=== PATIENT | male | born 1970 | race Caucasian/White ===

== ENCOUNTER 2017-07-28 15:29 | Emergency (ER) | payer OTHER ==
[~2017-07-28] VITALS: Ht 172.7 cm; Wt 68.0 kg
[~2017-07-28 15:29] MED LIST: ALBU90OI INH; AMOX500 PO; AZIT250 PO; Amoxicillin500 MG PO; Augmentin 875-1 EACH PO; Bactrim Ds Tab1 EACH PO; Benadryl 50 mg50 MG PO; CEPH500 PO; CHLO25 PO; Crutch1 EACH MISC; DOXY100 PO; FAMO20 PO; HYDACE5 PO; HYDHCL25 PO; IBUP400 PO; IBUP800 PO; Keflex500 MG PO; LIND60T TOP; MUPI2TC TOP; MUPI2TO TOP; NAPR500 PO; Norco 5-325 Ta1 EACH PO; PENVK500 PO; PRED20 PO; Percocet 5-3251 EACH PO; Prednisone20 MG PO; RXHYDACE PO; RXPENVK250 PO; RXTRAM50 PO; TRAM50 PO; Zofran Odt4 MG PO
[2017-07-28] MEDS ORDERED: Permethrin60 GM TOP (15:50)
== END 2017-07-28 15:57 | disposition home or self-care (01) ==
LOC: ER 15:29
DX: B86 Scabies (principal); F17.210 Nicotine dependence, cigarettes, uncomplicated
CPT/HCPCS: 99282

== ENCOUNTER 2018-10-31 02:36 | Emergency (ER) | payer OTHER ==
[~2018-10-31] VITALS: Ht 167.6 cm; Wt 63.5 kg
[~2018-10-31 02:36] MED LIST changes: +Permethrin60 GM TOP
[2018-10-31] MEDS ORDERED: Vibramycin100 MG PO (03:06)
== END 2018-10-31 03:15 | disposition home or self-care (01) ==
LOC: ER 02:36
DX: S61.031A Puncture wound without foreign body of right thumb without damage to nail, initial encounter (principal); L03.011 Cellulitis of right finger; X58.XXXA Exposure to other specified factors, initial encounter; F17.210 Nicotine dependence, cigarettes, uncomplicated
CPT/HCPCS: 73140; 99283-25

== ENCOUNTER 2018-11-04 13:14 | Emergency (ER) | payer OTHER ==
[~2018-11-04] VITALS: Ht 167.6 cm; Wt 65.8 kg
[~2018-11-04 13:14] MED LIST changes: +Vibramycin100 MG PO
[2018-11-04] MEDS ORDERED: Vibramycin100 MG PO (15:21)
== END 2018-11-04 16:29 | disposition home or self-care (01) ==
LOC: ER 13:14
DX: L03.011 Cellulitis of right finger (principal); L02.511 Cutaneous abscess of right hand; F17.210 Nicotine dependence, cigarettes, uncomplicated
CPT/HCPCS: 10060; 96365-59; 99283-25; J3370

== ENCOUNTER 2018-11-05 15:42 | Emergency (ER) | payer OTHER ==
[~2018-11-05] VITALS: Ht 165.1 cm; Wt 65.8 kg
[2018-11-05 16:33] LABS: Anion Gap 8 mmol/L (6-16); Blood Urea Nitrogen 8 mg/dL (8-24); Bun/Creatinine Ratio 14.3 (12.0-20.0); CO2, Blood 23 mmol/L (21-32); Calcium, Blood 8.5 mg/dL (8.5-10.1); Chloride, Blood 104 mmol/L (98-108); Creatinine, Blood 0.56 mg/dL (0.60-1.20); Glomerular Filtration Rate >60 (60-); Glucose, Blood 99 mg/dL (70-99); Potassium, Blood 3.4 mmol/L (3.5-5.5); Sodium, Blood 135 mmol/L (136-145)
== END 2018-11-05 17:44 | disposition home or self-care (01) ==
LOC: ER 15:42
PROVIDERS: Physician Assistant
DX: L03.011 Cellulitis of right finger (principal); L02.511 Cutaneous abscess of right hand; Z76.0 Encounter for issue of repeat prescription; F17.210 Nicotine dependence, cigarettes, uncomplicated
CPT/HCPCS: 80048; 96365; 99282-25; J3370

== ENCOUNTER 2018-11-06 07:47 | Emergency (ER) | payer OTHER ==
[~2018-11-06] VITALS: Ht 167.6 cm; Wt 65.8 kg
== END 2018-11-06 10:41 | disposition home or self-care (01) ==
LOC: ER 07:47
DX: L03.011 Cellulitis of right finger (principal); L02.511 Cutaneous abscess of right hand; F17.200 Nicotine dependence, unspecified, uncomplicated
CPT/HCPCS: 96361; 96365; 96366; J3370; J7030

== ENCOUNTER 2018-11-08 06:41 | Emergency (ER) | payer OTHER ==
[~2018-11-08] VITALS: Ht 167.6 cm; Wt 65.8 kg
== END 2018-11-08 09:26 | disposition home or self-care (01) ==
LOC: ER 06:41
DX: L02.511 Cutaneous abscess of right hand (principal); L03.011 Cellulitis of right finger; F17.200 Nicotine dependence, unspecified, uncomplicated
CPT/HCPCS: 96365; 96366; J3370

== ENCOUNTER 2019-02-03 22:25 | Emergency (ER) | payer OTHER ==
[~2019-02-03] VITALS: Ht 167.6 cm; Wt 65.8 kg
[2019-02-03] MEDS ORDERED: Vibramycin100 MG PO (23:24)
[2019-02-03] MEDS ORDERED: NICO21TP TOP (23:24)
== END 2019-02-03 23:30 | disposition home or self-care (01) ==
LOC: ER 22:25
DX: L03.116 Cellulitis of left lower limb (principal); F17.210 Nicotine dependence, cigarettes, uncomplicated
CPT/HCPCS: 99282

== ENCOUNTER → 2019-10-27 | Outpatient (CLI) | payer OTHER ==
[~2019-10-27] MED LIST changes: +NICO21TP TOP
[2019-10-27 15:20] LABS: BASOPHILS ABSOLUTE AUTO 0.07 K/mm3 (0.00-0.23); BASOPHILS PERCENT AUTO 1 % (0-2); EOSINOPHILS ABSOLUTE AUTO 0.38 K/mm3 (0.00-0.68); EOSINOPHILS PERCENT AUTO 6 % (0-6); Hematocrit 39.5 % (37.0-53.0); Hemoglobin 13.7 g/dL (13.5-17.5); IMMATURE GRAN ABSOLUTE AUTO 0.03 K/mm3 (0.00-0.10); IMMATURE GRAN PERCENT AUTO 1 % (0-1); LYMPHOCYTES ABSOLUTE AUTO 2.32 K/mm3 (0.84-5.20); LYMPHOCYTES PERCENT AUTO 36 % (21-46); MONOCYTES ABSOLUTE AUTO 0.79 K/mm3 (0.16-1.47); MONOCYTES PERCENT AUTO 12 % (4-13); Mean Corpuscular HGB 31.6 pg (26.0-34.0); Mean Corpuscular HGB Conc 34.7 g/dL (31.5-36.5); Mean Corpuscular Volume 91 fL (80-100); Mean Platelet Volume 8.2 fL (9.1-12.4); NEUTROPHILS ABSOLUTE AUTO 2.93 K/mm3 (1.96-9.15); NEUTROPHILS PERCENT AUTO 45 % (41-73); Platelet Count 224 K/mm3 (150-400); RDW Coefficient Variation 13.4 % (11.7-14.2); Red Blood Cell Count 4.34 M/mm3 (4.30-5.90); White Blood Cell Count 6.52 K/mm3 (4.00-11.30)
[2019-10-27 15:23] LABS: Anion Gap 8 mmol/L (6-16); Blood Urea Nitrogen 8 mg/dL (8-24); Bun/Creatinine Ratio 10.1 (12.0-20.0); CO2, Blood 29 mmol/L (21-32); Calcium, Blood 9.1 mg/dL (8.5-10.1); Chloride, Blood 99 mmol/L (98-108); Creatinine, Blood 0.79 mg/dL (0.60-1.20); Glomerular Filtration Rate >60 (60-); Glucose, Blood 103 mg/dL (70-99); Potassium, Blood 4.1 mmol/L (3.5-5.5); Sodium, Blood 136 mmol/L (136-145)
== END ==
LOC: LAB SHORT 15:14 → LAB EV 15:14
PROVIDERS: Nurse Practitioner
DX: J40 Bronchitis, not specified as acute or chronic (principal)
CPT/HCPCS: 80048; 85025

== ENCOUNTER 2021-11-18 16:55 | Inpatient (IN) | payer OTHER ==
[~2021-11-18] VITALS: Ht 170.2 cm; Wt 71.2 kg
[2021-11-18 17:13] LABS: BASOPHILS ABSOLUTE AUTO 0.08 K/mm3 (0.00-0.23); BASOPHILS PERCENT AUTO 1 % (0-2); EOSINOPHILS ABSOLUTE AUTO 0.21 K/mm3 (0.00-0.68); EOSINOPHILS PERCENT AUTO 3 % (0-6); Hematocrit 41.8 % (37.0-53.0); Hemoglobin 14.5 g/dL (13.5-17.5); IMMATURE GRAN ABSOLUTE AUTO 0.05 K/mm3 (0.00-0.10); IMMATURE GRAN PERCENT AUTO 1 % (0-1); LYMPHOCYTES ABSOLUTE AUTO 2.24 K/mm3 (0.84-5.20); LYMPHOCYTES PERCENT AUTO 37 % (21-46); MONOCYTES ABSOLUTE AUTO 0.67 K/mm3 (0.16-1.47); MONOCYTES PERCENT AUTO 11 % (4-13); Mean Corpuscular HGB Conc 34.7 g/dL (31.5-36.5); Mean Corpuscular Volume 92 fL (80-100); NEUTROPHILS ABSOLUTE AUTO 2.88 K/mm3 (1.96-9.15); NEUTROPHILS PERCENT AUTO 47 % (41-73); Platelet Count 245 K/mm3 (150-400); RDW Coefficient Variation 13.4 % (11.7-14.2); RDW Standard Deviation 45.7 fL (35.1-46.3); Red Blood Cell Count 4.53 M/mm3 (4.30-5.90); White Blood Cell Count 6.13 K/mm3 (4.00-11.30)
[2021-11-18 17:36] LABS: Albumin/Globulin Ratio 0.7 (0.8-1.8); Bilirubin, Total 0.6 mg/dL (0.1-1.0); Bun/Creatinine Ratio 23.4 (12.0-20.0); Calcium, Blood 9.6 mg/dL (8.5-10.1); Creatinine, Blood 0.73 mg/dL (0.60-1.20); Globulin, Blood 5.9 g/dL (2.2-4.0); Potassium, Blood 4.7 mmol/L (3.5-5.5); Total Protein, Blood 9.9 g/dL (6.4-8.2)
[2021-11-18 18:41] LABS: International Normalized Ratio 1.1; Prothrombin Time Results 11.5 Sec (9.7-11.5)
[2021-11-18 19:11] LABS: Source, Urine Clean Catch
[2021-11-18 19:14] LABS: Appearance, Urine Cloudy (Clear); Bilirubin, Urine Neg (Neg); Blood, Urine 5+ (Neg); Color, Urine Amber (P-Yellow); Glucose Qualitative, Urine Neg (Neg); Ketones, Urine Neg (Neg); Leukocyte Esterase, Urine Neg (Neg); Nitrite, Urine Neg (Neg); Protein, Urine 2+ (Neg); Urobilinogen, Urine NORM (Normal)
[2021-11-18 19:25] LABS: Bacteria Few /hpf; Red Blood Cells, Urine 25-50 /hpf (0-2); Squamous Epithelial Cells Rare /hpf (Few); White Blood Cells, Urine 0-2 /hpf (0-5)
[2021-11-18 19:32] LABS: U Amphetamine Screen DETECTED; U Barbituate Screen Not Detected; U Benzodiazapine Screen Not Detected; U Buprenorphine Screen Not Detected; U Cannabinoids Screen Not Detected; U Cocaine Screen Not Detected; U Methadone Screen Not Detected; U Methamphetamine Screen DETECTED; U Opiates Screen Not Detected; U Oxycodone Screen Not Detected; U Phencyclidine Screen Not Detected; U Propoxyphene Screen Not Detected
[2021-11-19] MEDS ORDERED: Norco 5-325 Ta1 EACH PO (17:01)
== END 2021-11-19 17:44 | disposition home or self-care (01) | DRG 206 ==
LOC: ER 16:55 → SURS 20:46
PROVIDERS: Student in an Organized Health Care Education/Training Program; ADMIT Surgery
DX: S22.32XA Fracture of one rib, left side, initial encounter for closed fracture (principal); S82.091A Other fracture of right patella, initial encounter for closed fracture; S22.31XA Fracture of one rib, right side, initial encounter for closed fracture; F15.90 Other stimulant use, unspecified, uncomplicated; S10.83XA Contusion of other specified part of neck, initial encounter; F17.210 Nicotine dependence, cigarettes, uncomplicated; Z98.890 Other specified postprocedural states; V89.2XXA Person injured in unspecified motor-vehicle accident, traffic, initial encounter
CPT/HCPCS: 70450; 70491; 71260; 73562-RT; 73700; 74177; 76377; 80053; 81001; 83690; 85025; 85610; 86850; 86900; 86901; 93005; 93010; 96374-59; 99285-25; A9270; G0480; J1170; Q9967

== ENCOUNTER 2024-05-23 17:27 | Emergency (ER) | payer OTHER ==
[~2024-05-23] VITALS: Ht 172.7 cm; Wt 68.0 kg
[2024-05-23 17:55] VITALS: BP 104/71
[2024-05-23] MEDS ORDERED: PRED20 PO (18:25)
[2024-05-23] MEDS ORDERED: BENZ100A PO (18:25)
[2024-05-23] MEDS ORDERED: ALBU90OI INH (18:25)
[2024-05-23] MEDS ORDERED: AZIT250 PO (18:25)
== END 2024-05-23 18:40 | disposition home or self-care (01) ==
LOC: ER 17:27
DX: J02.9 Acute pharyngitis, unspecified (principal); J44.9 Chronic obstructive pulmonary disease, unspecified; F17.210 Nicotine dependence, cigarettes, uncomplicated
CPT/HCPCS: 87081; 87430; 99283